=== PATIENT | female | born 1985 | race Caucasian/White ===

== ENCOUNTER 2016-05-06 22:39 | Emergency (ER) | payer OTHER ==
[~2016-05-06 22:39] MED LIST: FLEX PO; GLUCOPHAGE1000 MG PO; HUMALOGPEN; KLONO2 PO; LANTUSCART SC; LOTENSIN HCT1 TA3 PO; NAP500 PO; PERCOCET 10/3251 TAB PO; PLAVIX PO
[2016-08-17] MEDS ORDERED: ACET500CAP PO (09:17)
[2016-08-17] MEDS ORDERED: HUMALOG SC (09:17)
[2016-08-17] MEDS ORDERED: LANTUS SC (09:17)
[2016-08-17] MEDS ORDERED: FLEX PO (09:17)
[2016-08-17] MEDS ORDERED: LOTENSIN HCT1 TA3 PO (09:18)
[2016-08-17] MEDS ORDERED: GLUCOPHAGE1000 MG PO (09:19)
[2016-08-17] MEDS ORDERED: LISINOPRIL PO (09:21)
[2016-08-18] MEDS ORDERED: HABIT21 (16:13)
== END 2016-05-06 23:49 | disposition home or self-care (01) ==
LOC: ER 22:39
DX: G89.18 Other acute postprocedural pain (principal); M25.561 Pain in right knee; Z87.891 Personal history of nicotine dependence; I10 Essential (primary) hypertension; E11.9 Type 2 diabetes mellitus without complications; Z88.8 Allergy status to other drugs, medicaments and biological substances; Z88.5 Allergy status to narcotic agent; Z88.6 Allergy status to analgesic agent; Z79.899 Other long term (current) drug therapy; Z79.4 Long term (current) use of insulin
CPT/HCPCS: 73560-RT; 96372; 99284; J1885

== ENCOUNTER 2016-06-01 23:58 | Emergency (ER) | payer OTHER ==
[2016-06-02 06:41] LABS: BASOPHILS 0.3 %; BASOPHILS ABSOLUTE 0.04 10/3/uL (0.0-0.16); EOSINOPHILS 1.2 %; EOSINOPHILS ABSOLUTE 0.16 10/3/uL (0.0-0.53); IMMATURE GRANULOCYTES 0.2 %; LYMPHOCYTES 43.2 %; LYMPHOCYTES ABSOLUTE 5.65 10/3/uL (0.67-4.30); MEAN CORPUSCULAR HEMOGLOB 31.3 pg (26.0-34.0); MEAN CORPUSCULAR VOLUME 90.7 fL (80-100); MEAN PLATELET VOLUME 10.1 fL (9.2-13.0); MONOCYTES 4.7 %; MONOCYTES ABSOLUTE 0.61 10/3/uL (0.21-1.20); NEUTROPHILS 50.4 %; PLATELET COUNT 433 10/3/uL (150-400); RBC DISTRIBUTION WIDTH 13.3 % (12.0-16.0)
[2016-06-02 06:44] LABS: ER CBC TAT 0 Hrs 07 Mins; HEMATOCRIT 40.9 % (36.0-48.0); HEMOGLOBIN 14.1 g/dL (12.0-16.0); IMMATURE GRANULOCYTES ABSOLUTE 0.03 10/3/uL (0.0-0.11); MANUAL DIFF NO %; MEAN CORPUS HGB CONC 34.5 g/dL (32.0-36.0); RED CELL COUNT 4.51 10/6/uL (4.0-5.6); WHITE BLOOD CELLS 13.1 10/3/uL (4.5-10.5)
[2016-06-02 06:48] LABS: PARTIAL THROMBO TIME 28.9 SEC (22.5-37.2)
[2016-06-02 06:49] LABS: PROTIME (NOT ORD) 13.4 SEC (12.0-14.5)
[2016-06-02 06:53] LABS: BUN (BLOOD UREA NITROGEN) 10 MG/DL (6-23); CALCIUM, SERUM 9.4 MG/DL (8.5-10.4); CHLORIDE, SERUM 103 MMOL/L (96-112); CO2 (CARBON DIOXIDE) 27 MMOL/L (24-34); CREATININE 0.66 MG/DL (0.55-1.02); GFR AFRICAN AMERICAN 137 ML/MIN (>=60); GFR NON AFRICAN AMERICAN 119 ML/MIN (>=60); GLUCOSE, SERUM 206 MG/DL (60-99); SODIUM, SERUM 138 MMOL/L (135-148)
[2016-06-02 07:10] LABS: ER DIFF TAT 0 Hrs 33 Mins; LYMPHOCYTES 51 %; LYMPHOCYTES ABSOLUTE (CALC) 6.68 10/3/uL (0.67-4.30); MONOCYTES 2 %; MONOCYTES ABSOLUTE (CALC) 0.26 10/3/uL (0.21-1.20); NEUTROPHILS ABSOLUTE (CALC) 6.16 10/3/uL (2.02-8.40); SEGMENTED NEUTROPHIL (0) 47 %; TOTAL NUCLEATED CELLS 100
[2016-06-02 07:11] LABS: PLATELET ESTIMATE SLT INC (ADEQUATE); RBC MORPHOLOGY NORM (NORMAL)
[2016-08-17] MEDS ORDERED: FLEX PO (09:17)
[2016-08-17] MEDS ORDERED: HUMALOG SC (09:17)
[2016-08-17] MEDS ORDERED: LANTUS SC (09:17)
[2016-08-17] MEDS ORDERED: ACET500CAP PO (09:17)
[2016-08-17] MEDS ORDERED: LOTENSIN HCT1 TA3 PO (09:18)
[2016-08-17] MEDS ORDERED: GLUCOPHAGE1000 MG PO (09:19)
[2016-08-17] MEDS ORDERED: LISINOPRIL PO (09:21)
[2016-08-18] MEDS ORDERED: HABIT21 (16:13)
== END 2016-06-02 10:13 | disposition home or self-care (01) ==
LOC: ER 23:58
PROVIDERS: Specialist
DX: M25.561 Pain in right knee (principal); F17.200 Nicotine dependence, unspecified, uncomplicated; I10 Essential (primary) hypertension; E11.9 Type 2 diabetes mellitus without complications; Z88.8 Allergy status to other drugs, medicaments and biological substances; Z88.5 Allergy status to narcotic agent; Z88.6 Allergy status to analgesic agent; Z79.899 Other long term (current) drug therapy; Z79.4 Long term (current) use of insulin; Z79.84 Long term (current) use of oral hypoglycemic drugs
CPT/HCPCS: 73560-RT; 80048; 85025; 85379; 85610; 85730; 93971; 96372; 99284; A9270-GY; J1170

== ENCOUNTER 2016-07-01 10:46 | Emergency (ER) | payer OTHER ==
[2016-07-01 02:39] LABS: BASOPHILS 0.4 %; BASOPHILS ABSOLUTE 0.05 10/3/uL (0.0-0.16); EOSINOPHILS 1.3 %; EOSINOPHILS ABSOLUTE 0.15 10/3/uL (0.0-0.53); HEMATOCRIT 41.8 % (36.0-48.0); HEMOGLOBIN 14.4 g/dL (12.0-16.0); IMMATURE GRANULOCYTES 0.3 %; IMMATURE GRANULOCYTES ABSOLUTE 0.03 10/3/uL (0.0-0.11); LYMPHOCYTES 37.2 %; LYMPHOCYTES ABSOLUTE 4.19 10/3/uL (0.67-4.30); MEAN CORPUS HGB CONC 34.4 g/dL (32.0-36.0); MEAN CORPUSCULAR HEMOGLOB 31.1 pg (26.0-34.0); MEAN CORPUSCULAR VOLUME 90.3 fL (80-100); MEAN PLATELET VOLUME 10.4 fL (9.2-13.0); MONOCYTES 4.6 %; MONOCYTES ABSOLUTE 0.52 10/3/uL (0.21-1.20); NEUTROPHILS 56.2 %; NEUTROPHILS ABSOLUTE 6.33 10/3/uL (2.02-8.40); PLATELET COUNT 448 10/3/uL (150-400); RBC DISTRIBUTION WIDTH 12.9 % (12.0-16.0); RED CELL COUNT 4.63 10/6/uL (4.0-5.6); WHITE BLOOD CELLS 11.3 10/3/uL (4.5-10.5)
[2016-07-01 02:40] LABS: MANUAL DIFF NO %
[2016-07-01 02:50] LABS: CALCIUM, SERUM 9.2 MG/DL (8.5-10.4); CHLORIDE, SERUM 100 MMOL/L (96-112); CO2 (CARBON DIOXIDE) 27 MMOL/L (24-34); GFR AFRICAN AMERICAN 115 ML/MIN (>=60); GFR NON AFRICAN AMERICAN 99 ML/MIN (>=60); POTASSIUM, SERUM 4.2 MMOL/L (3.5-5.3); SODIUM, SERUM 136 MMOL/L (135-148)
[2016-07-01 02:51] LABS: BUN (BLOOD UREA NITROGEN) 5 MG/DL (6-23); GLUCOSE, SERUM 302 MG/DL (60-99)
[2016-07-01 04:21] LABS: ASCORBIC ACID (UR NOT ORDER) NEG (NEG); BILIRUBIN, URINE NEGATIVE (NEG); ER URINALYSIS TAT 0 Hrs 00 Mins; KETONE, URINE NEGATIVE (NEG); LEUKOCYTE ESTERASE(NOT OR NEG (NEG); NITRITE (URINE) NEG (NEG); WBC (NOT ORDERED) (RFLEX) 1 (0-5)
[2016-08-17] MEDS ORDERED: LANTUS SC (09:17)
[2016-08-17] MEDS ORDERED: HUMALOG SC (09:17)
[2016-08-17] MEDS ORDERED: FLEX PO (09:17)
[2016-08-17] MEDS ORDERED: ACET500CAP PO (09:17)
[2016-08-17] MEDS ORDERED: LOTENSIN HCT1 TA3 PO (09:18)
[2016-08-17] MEDS ORDERED: GLUCOPHAGE1000 MG PO (09:19)
[2016-08-17] MEDS ORDERED: LISINOPRIL PO (09:21)
[2016-08-18] MEDS ORDERED: HABIT21 (16:13)
== END 2016-07-01 12:00 | disposition home or self-care (01) ==
LOC: ER 10:46
PROVIDERS: Specialist
DX: M25.561 Pain in right knee (principal); E11.65 Type 2 diabetes mellitus with hyperglycemia; I10 Essential (primary) hypertension; F17.200 Nicotine dependence, unspecified, uncomplicated; Z88.5 Allergy status to narcotic agent; Z88.6 Allergy status to analgesic agent; Z88.8 Allergy status to other drugs, medicaments and biological substances; Z79.4 Long term (current) use of insulin; Z79.899 Other long term (current) drug therapy
CPT/HCPCS: 80048; 81001; 82962; 85025; 96374; 99285; A9270-GY